=== PATIENT | male | born 1955 | race African-American/Black ===

== ENCOUNTER 2022-01-30 17:57 | Emergency (ER) | payer OTHER ==
[~2022-01-30] VITALS: Ht 177.8 cm; Wt 79.0 kg
[2022-01-30 18:35] VITALS: BP 155/76
[2022-01-30] MEDS ORDERED: TETANUS, DIPHTHERIA, PERTUSSIS VAC/PF 0.5ML (>10YR OLD) IM ONE ×2 (19:00→22:15)
== END 2022-01-30 22:55 | disposition home or self-care (01) ==
LOC: ER 17:57
DX: S09.8XXA Other specified injuries of head, initial encounter (principal); W18.39XA Other fall on same level, initial encounter; Y93.89 Activity, other specified; Y92.89 Other specified places as the place of occurrence of the external cause; Y99.8 Other external cause status; F10.129 Alcohol abuse with intoxication, unspecified; Y90.0 Blood alcohol level of less than 20 mg/100 ml
CPT/HCPCS: 82962; 90471; 90715; 99284